=== PATIENT | female | born 1970 | race Caucasian/White ===

== ENCOUNTER 2019-08-09 06:26 | Day surgery (SDC) | payer BC ==
[~2019-08-09 06:26] MED LIST: Lactated Ringers 1,000 ML IV SCH
[2019-08-09] MEDS ORDERED: Lactated Ringers 1,000 ML IV SCH (07:00)
[2019-08-09] MEDS ORDERED: Propofol 200 MG/20 ML SDV ONE ×3 (08:07→08:27)
[2019-08-09] MEDS ORDERED: fentaNYL 100 MCG/2 ML SDV ONE (08:07)
--- NOTE | 2019-08-09 10:08 | OR ---
PRE-OPERATIVE DIAGNOSES: 1. Positive family history of colon polyps (polyposis coli, familial). 2. History of colon polyps. Last colonoscopy was in 2012. POST-OPERATIVE DIAGNOSIS: Somewhat tortuous, but otherwise normal colon. PROCEDURE: Colonoscopy. ANESTHESIA: Monitored anesthesia care. BOWEL PREP: Good. DESCRIPTION OF PROCEDURE: Angélica is a 48-year-old female who was brought to the endoscopy suite after discussing risks and benefits of the procedure. Informed consent was obtained for conscious sedation and colonoscopy with or without biopsy and/or polypectomy. We also discussed possibility of missed lesions. Pre-procedure exam was unremarkable. IV, oxygen, and monitors were placed. The patient was placed in the left lateral decubitus position. Sedation was administered and a digital rectal exam was performed and unremarkable. Colonoscope was passed into the rectum and slowly advanced all the way to the cecum. The patient did have somewhat tortuous colon requiring some scope maneuvering and abdominal pressure. The cecum was viewed and photographed. The colonoscope was slowly withdrawn and the mucosa was closed observed in a direct circumferential manner. The ascending colon was unremarkable. The transverse colon was unremarkable. The descending colon was unremarkable. The sigmoid colon was unremarkable. Retroflexion was performed and rectal mucosa was unremarkable. Scope was removed. The patient tolerated the procedure well. The patient was monitored until that baseline status. Discharge instructions were reviewed and the patient was discharged in good condition. COMPLICATIONS: None. TOTAL TIME: 25 minutes. ESTIMATED BLOOD LOSS: None. RECOMMENDATIONS/FOLLOW-UP: Given the personal history of colon polyps as well as family history of colon polyps, I would recommend repeating colonoscopy again in about 5 years. I would like to kindly thank Ryan Weir for this referral. DMB: 08/09/2019 08:56:34 MODL: 08/09/2019 10:03:06 /[id number]
== END 2019-08-09 10:05 | disposition home or self-care (01) ==
LOC: VM.SDS 06:26
PROVIDERS: ATTEND Family Medicine
DX: Z12.11 Encounter for screening for malignant neoplasm of colon (principal); Q43.8 Other specified congenital malformations of intestine; K21.9 Gastro-esophageal reflux disease without esophagitis; J30.1 Allergic rhinitis due to pollen; E78.00 Pure hypercholesterolemia, unspecified; Z83.71 Family history of colonic polyps; Z86.010 Personal history of colon polyps; Z88.4 Allergy status to anesthetic agent
CPT/HCPCS: J2704; J3010; J7120